=== PATIENT | male | born 2000 | race Caucasian/White ===

== ENCOUNTER 2025-01-09 01:00 | Outpatient (CLI) | payer MEDICAID, SELFPAY ==
--- NOTE | 2025-01-09 | DI.US_ITS ---
Exam(s) US SCROTUM EXAM: US SCROTUM CLINICAL HISTORY: PAIN LT TESTICLE, N50.812,H/O VARICOCELE WITH SURGERY 6 YRS AGO,EVAL. TECHNIQUE: Scrotal ultrasound performed using grayscale, color-flow and spectral Doppler analysis. COMPARISON: No exams were available for comparison FINDINGS: RIGHT TESTICLE: 5.0 x 2.6 x 2.6 cm Echogenicity: Normal. Contour: Smooth. Mass: None seen. Microlithiasis: None. Hydrocele: None. Varicocele: None. Hernia: No peristalsing bowel loop identified. Epididymis: Normal. Scrotum: Normal. LEFT TESTICLE: 4.1 x 2.2 x 2.8 cm Echogenicity: Normal. Contour: Smooth. Mass: None seen. Microlithiasis: None. Hydrocele: Small, measured at 2.7 x 0.8 x 2.1 cm. Mobile scrotal patrizia noted. Varicocele: None. Hernia: No peristalsing bowel loop identified. Epididymis: Normal. Scrotum: Normal. DOPPLER: Color: Symmetric and uniform, no hyperemia. Duplex: Bilateral testicular arterial waveforms visualized. IMPRESSION: Normal appearing bilateral testicles. No evidence varicocele. Small left hydrocele with scrotal patrizia. DATA REPOSITORY:
== END 2025-01-09 01:20 ==
LOC: DI 01:00
PROVIDERS: Visit Provider Family Medicine
DX: N50.812 Left testicular pain (principal); N43.3 Hydrocele, unspecified
CPT/HCPCS: 76870

== ENCOUNTER 2025-03-10 18:28 | Emergency (ER) | payer MEDICAID, SELFPAY ==
[2025-03-10 18:30] VITALS: BP 125/76; PULSE 90; RESP 16; TEMP 36.9
--- NOTE | 2025-03-10 18:40 | ED.GENADUL_ITS ---
Discharge Plan Disposition Patient Disposition: Home Condition: Stable Discharge Details Clinical Impression: Tick bite Primary Care Provider: Unknown,Unknown ED Provider: Jer Sams Home Meds and New Rx's Prescriptions: No Action No Known Home Meds Discharge Instructions Instructions: Lyme Disease Test, Insect Bites and Stings ED Additional Instructions: You were seen in the emergency department for the tick bite of your left chest, does not appear to have the traditional rash of Lyme disease, you do not have any symptoms like fever, lethargy or bodyaches, I offered you Lyme disease testing you stated you wish to pursue it with your doctor, the bite occurred 4 to 5 days ago and prophylactic doxycycline is not warranted at this time, if you do experience any profound lethargy or bodyaches please come back to the ER or present to your doctors office for Lyme disease testing and empiric doxycycline at that time. HPI General Date/Time Provider Initiated Documentation: 03/10/25 18:40 . HPI Narrative: 24 year-old male presents to ED today by POV/ambulating with a chief complaint of tick bite to L torso with onset 4-5 days ago, has a macular red 0.5cm area around bite states it hurts. Quality described as tick bite, a small tick - un known species, no radiation to body aches, fatigue, nausea, palpitations, fever, spreading rash around the bite. Severity is described as mild. Palliating factors include nothing specific attempted. Provoking factors include nothing specific. Patient not anticoagulated. Related Data Home Medications ?Medication ?Instructions ?Recorded ?Confirmed Unknown [No Known Home Meds] 03/10/25 0 03/10/25 General Stated Complaint: RashLesion ANETTE: 4 Review of Systems All systems reviewed & are unremarkable except as noted in HPI and below Exam Narrative Exam Narrative: GENERAL APPEARANCE: Well-nourished, non-toxic, awake and alert, atraumatic, no acute distress. SKIN: Warm, pink, dry, 0.5 cm area of erythema around the tick bite just inferior to the left nipple, no rash of erythema migrans HEAD: Normocephalic, atraumatic, normal hair distribution for gender/age. EYES: Normal conjunctiva, no exudates on lids/lashes. ENT: Nares patent, no circumoral cyanosis, no facial swelling NECK: Supple, trachea midline, painless cervical ROM. LUNGS/CHEST: Non-labored respirations, normal A/P diameter, symmetrical expansion, no chest wall deformity HEART (CV/PV): No peripheral edema, no JVD. ABDOMEN: Soft, non-distended, no guarding. MSK: Normal ROM, no swelling/deformity to bilateral UEs or LEs, moving all extremities without weakness, no cyanosis, spine midline without tenderness, normal curvature. NEURO: Mental Status AAOx4 - alert to person, place, time, events No facial droop, no forehead involvement. Motor: No focal weakness - strength 5/5 in bilateral UEs and LEs, proximal and distal, symmetric. Sensory: sensation intact to light touch globally. Gait normal: patient ambulated without ataxia into ED room. PSYCH: euthymic, cooperative, pleasant, appropriate speech Course Vital Signs Vital signs: Vital Signs Temperature 36.9 C 03/10/25 18:30 Pulse 90 03/10/25 18:30 Respiratory Rate 16 03/10/25 18:30 Blood Pressure 125/76 03/10/25 18:30 Temperature 36.9 C 03/10/25 18:30 Temperature Source Oral 03/10/25 18:30 Pulse 90 03/10/25 18:30 Respiratory Rate 16 03/10/25 18:30 Blood Pressure 125/76 03/10/25 18:30 Blood Pressure Position Sitting 03/10/25 18:30 Oxygen Delivery Method Room Air 03/10/25 18:30 Oxygen Flow Rate 0 03/10/25 18:30 Medical Decision Making This dictation utilizes [id number] dictation software and may contain unedited grammatical errors. 24 year-old male presents to ED today by POV/ambulating with a chief complaint of tick bite to L torso with onset 4-5 days ago, has a macular red 0.5cm area around bite states it hurts. Quality described as tick bite, a small tick - unknown species, no radiation to body aches, fatigue, nausea, palpitations, fever, spreading rash around the bite. Severity is described as mild. Palliating factors include nothing specific attempted. Provoking factors include nothing specific. Patients' medical history: Negative, otherwise healthy. Family and social history: Noncontributory. Pertinent exam findings / vital signs include 0.5 cm area of erythema around the tick bite just inferior to the left nipple, no rash of erythema migrans, nontoxic and afebrile. Differential / pathologies of concern include tick bite, Lyme disease. Diagnostic studies of: - Offered tick and Lyme panel-patient would prefer to get this from his primary care provider. Interventions of: - None, outside window for doxycycline prophylaxis. ED Course/Assessment/Plan: 24-year-old male presents with a tick bite 4 to 5 days ago to his left torso, he has no evidence of the rash of erythema migrans, denies any fever, myalgias, body aches, lethargy or palpitations, I discussed tick and Lyme testing, he states that he would prefer to do this in the outpatient setting, as no overt symptoms of Lyme disease I do recommend he return for any fatigue or bodyaches but at this time he has no rash to suggest erythema migrans and no evidence of significant cellulitis. Findings not consistent with Lyme disease or cellulitis. Disposition of tick bite. Patient verbalized understanding of the plan and return to ED criteria and engaged in shared decision making. Medical Records Medical records reviewed: Yes I reviewed the patient's medical records. [facility] All Active Problems (Updated 03/10/25 @ 18:43 by NETTE Lazaro) Tick bite (Acute) Social History Smoking/Tobacco Use Status: Never Smoking risk assessment performed?: Yes Alcohol Intake: never Drug use: Never Substance use type: does not use Do you feel safe at home: Yes Do you feel safe in your relationship?: Yes
== END 2025-03-10 18:53 | disposition home or self-care (01) ==
LOC: ER 18:56
PROVIDERS: Emergency Provider Physician Assistant
DX: S20.361A Insect bite (nonvenomous) of right front wall of thorax, initial encounter (principal); W57.XXXA Bitten or stung by nonvenomous insect and other nonvenomous arthropods, initial encounter
CPT/HCPCS: 99283; 99282